=== PATIENT | male | born 1950 | race Caucasian/White ===

== ENCOUNTER 2018-09-05 10:55 | Emergency (ER) | payer OTHER ==
[~2018-09-05] VITALS: Ht 177.8 cm; Wt 83.9 kg
[2018-09-05 11:22] VITALS: Ht 177.8 cm; Wt 83.9 kg
[2018-09-05 15:23] VITALS: BP 136/80
== END 2018-09-05 15:23 | disposition home or self-care (01) ==
LOC: ED 10:55 → EDBD 10:55 → ED 15:23
DX: S29.011A Strain of muscle and tendon of front wall of thorax, initial encounter (principal); I10 Essential (primary) hypertension; W01.0XXA Fall on same level from slipping, tripping and stumbling without subsequent striking against object, initial encounter; Y93.89 Activity, other specified; Y92.89 Other specified places as the place of occurrence of the external cause; Y99.8 Other external cause status

== ENCOUNTER 2019-01-08 09:23 | Emergency (ER) | payer OTHER ==
[~2019-01-08] VITALS: Ht 177.8 cm; Wt 82.1 kg
[2019-01-08 09:36] VITALS: Ht 177.8 cm; Wt 82.1 kg
[2019-01-08 10:50] LABS: CHLORIDE SERUM 110 mmol/L (98-107); CREATININE SERUM 0.9 mg/dL (0.7-1.3); GFR1 > 60 mL/min; GLUCOSE SERUM 104 mg/dL (74-106); POTASSIUM SERUM 4.2 mmol/L (3.5-5.1); SODIUM SERUM 146 mmol/L (136-145)
[2019-01-08 10:51] LABS: BASOPHIL % 0.2 % (0-2); PLATELET COUNT 191 x10^3mcL (130-400); RED CELL DISTRIBUTION WIDTH 13.3 % (11.5-14.5)
[2019-01-08 10:55] LABS: ALKALINE PHOSPHATASE 43 U/L (46-116); ALT/SGPT 18 U/L (16-63); AST/SGOT 15 U/L (15-37); BILIRUBIN TOTAL 0.4 mg/dL (0.20-1.00); TOTAL PROTEIN, SERUM 6.5 g/dL (6.4-8.2)
[2019-01-08 11:00] LABS: ALBUMIN 2.9 g/dL (3.4-5.0)
[2019-01-08 12:31] VITALS: BP 157/88
== END 2019-01-08 12:39 | disposition home or self-care (01) ==
LOC: ED 09:23
PROVIDERS: Emergency Medicine
DX: R42 Dizziness and giddiness (principal); R60.9 Edema, unspecified; I10 Essential (primary) hypertension
CPT/HCPCS: 36415; 83880; J8597; Q0092